=== PATIENT | female | born 1980 | race Caucasian/White ===

== ENCOUNTER 2016-10-23 00:25 | Emergency (ER) | payer OTHER ==
[~2016-10-23] VITALS: Ht 162.6 cm; Wt 61.8 kg
[~2016-10-23 00:25] MED LIST: FIBER GUMMIES2.5 GM PO; MULTICHEW CHEW1 EACH PO; MULTIPLE VITAM1 EACH PO; PERCOCET 5/31 TABLET PO; VENTOLIN HFA18 GM IH; ZOFRAN4 MG PO
[2016-10-23] MEDS ORDERED: VICOPROFEN1 TABLET PO (02:00)
[2016-10-23] MEDS ORDERED: AMOXICILLIN875 MG PO (02:00)
[2016-10-23 02:19] VITALS: BP 128/88
== END 2016-10-23 02:22 | disposition home or self-care (01) ==
LOC: EME 00:25
PROC: 3E0T3BZ Introduction of Anesthetic Agent into Peripheral Nerves and Plexi, Percutaneous Approach (ICD-10-PCS; principal; 2016-10-23)
DX: K08.89 Other specified disorders of teeth and supporting structures (principal); K21.9 Gastro-esophageal reflux disease without esophagitis; J45.909 Unspecified asthma, uncomplicated
CPT/HCPCS: 99281; 99284